=== PATIENT | female | born 1970 | race African-American/Black ===

== ENCOUNTER 2017-08-18 08:20 | Emergency (ER) | END 2017-08-18 12:57 | disposition home or self-care (01) ==

== ENCOUNTER 2018-02-05 21:27 | Emergency (ER) | END 2018-02-06 01:11 | disposition home or self-care (01) ==

== ENCOUNTER 2018-10-18 13:24 | Emergency (ER) | payer BC ==
[~2018-10-18] VITALS: Ht 157.5 cm; Wt 68.2 kg
[~2018-10-18 13:24] MED LIST: CETI10CA PO; DIVA-48 PO; LORA-441 PO; MECL-77 PO; MECL12.574 PO; PHEN100O2 PO
[2018-10-18 13:32] VITALS: Ht 157.5 cm; Wt 68.2 kg
[2018-10-18] MEDS ORDERED: HYDROCODONE/APAP (10/325) TAB PO ONE (14:00)
[2018-10-18] MEDS ORDERED: PHEN100C PO (14:56)
[2018-10-18] MEDS ORDERED: LEVE750T70 PO (14:56)
[2018-10-18] MEDS ORDERED: CITA20TA11 PO (14:57)
[2018-10-18] MEDS ORDERED: CITA10TA10 PO (14:57)
--- NOTE | 2018-10-18 15:20 | ERD ---
ER Documentation Chief Complaint Chief Complaint [place] [facility] [employer] S/P SEIZURE; HX SEIZURE HPI This is a 48-year-old female with a long-standing seizure disorder who takes D ilantin 300 mg at night with Keppra 1000 mg twice daily. The patient was aligned to get some food at a local store when she had a witnessed general tonic-clonic seizure for 2 minutes. Patient does not recall anything except waking up in the ambulance. She has not had a seizure in quite a while. She is not sure when her last one was. Currently she has a mild headache. Denies any neck pain shoulder pain no recent illness injury she is taking her medications as prescribed she states ROS All systems reviewed and are negative except as per history of present illness. Medications Home Meds Reported Medications Citalopram Hydrobromide* (Celexa*) 20 Mg Tablet, 20 MG PO QPM, #30 TAB 10/18/18 Citalopram Hydrobromide* (Celexa*) 10 Mg Tablet, 10 MG PO QAM, #30 TAB 10/18/18 Phenytoin* Sodium Extended (Dilantin*) 100 Mg Capsule, 400 MG PO HS, CAP 10/18/18 Levetiracetam* (Keppra*) 750 Mg Tablet, 1500 MG PO BID, TAB 10/18/18 Discontinued Reported Medications Phenytoin* (Dilantin* Susp) 100 Mg/4 Ml Oral.susp, 200 MG PO BID, POSYG 10/17/13 Divalproex Sodium* (Depakote*) 500 Mg Tablet.dr, 500 MG PO BID, TAB 10/17/13 Meclizine Hcl* (Meclizine Hcl*) 25 Mg Tablet, 25 MG PO Q6 10/17/13 Discontinued Scripts Cetirizine Hcl* (Zyrtec*) 10 Mg Capsule, 10 MG PO DAILY, #30 TAB.CHEW Prov:CRISTINA SCHWARTZ [employer] FUNCTIONAL ANALYST 02/06/18 Meclizine Hcl* (Antivert*) 12.5 Mg Tab, 25 MG PO Q6H PRN for DIZZINESS, #20 TAB Prov:CRISTINA SCHWARTZ [employer]CTIONAL ANALYST 02/06/18 Lorazepam* (Ativan*) 0.5 Mg Tablet, 0.5 MG PO Q8H PRN for ANXIETY, #6 TAB Prov:DIERDRE BANGURA MD 08/18/17 Allergies Allergies: Coded Allergies: No Known Drug Allergy (Verified Allergy, Unknown, 10/18/18) PMhx/Soc History of Surgery: Yes (BUNION, TUBAL LIGATION ) Anesthesia Reaction: No Hx Neurological Disorder: No Hx Respiratory Disorders: No Hx Cardiac Disorders: No Hx Psychiatric Problems: Yes (DEPRESSION , ANXIETY ) Hx Miscellaneous Medical Probl: Yes (SEIZURES) Hx Alcohol Use: Yes (occassional) Hx Substance Use: Yes (Marijuana) Hx Tobacco Use: Yes Smoking Status: Current every day smoker FmHx Family History: No coronary disease Physical Exam Vitals Vital Signs Date Temp Pulse Resp B/P (MAP) Pulse Ox O2 O2 Flow FiO2 Time Delivery Rate 10/18/18 98.7 88 15 119/80 100 13:32 (93) Physical Exam Const: Well-developed, well-nourished Head: Atraumatic, normocephalic Eyes: Normal Conjunctiva, PERRLA, EOMI, normal sclera, no nystagmus ENT: Normal External Ears, Nose and Mouth, moist mucus membranes. Neck: Full range of motion. No meningismus, no lymphadenopathy. Resp: Clear to auscultation bilaterally, no wheezing, rhonchi, rales Cardio: Regular rate and rhythm, no murmurs, S1 S2 present Abd: Soft, non tender x 4, non distended. Normal bowel sounds, no guarding or rebound, no pulsitile abdominal masses or bruits Skin: No petechiae or rashes, no ecchymosis , no maculopapular rash Back: No midline or flank tenderness Ext: No cyanosis, or edema, FROM x 4, normal inspection, neurovascularly intact x 4 Neur: Awake and alert, STR 5/5 x 4, sensation intact x 4, no focal findings, cerebellum intact Psych: Normal Mood and Affect Results 24 hrs Laboratory Tests Test 10/18/18 13:50 Phenytoin (Dilantin) Level 5.7 ug/ml Current Medications Medications Dose Sig/Raquel Start Time Status Last (Trade) Ordered Route PRN Stop Time Admin Dose Reason Admin 1 tab ONCE ONCE 10/18/18 DC 10/18/18 Acetaminophen PO 14:00 10/18/18 13:54 / 14:01 Hydrocodone Bitart ([place] ()) Procedures/MDM Patient: OLIVIA,KITA : 1970 Age: 48 Sex: F MR #: [id number] DOS: 10/18/18 1349 Ordering MD: JOSLYN GILMORE DO Location: E/R Room/Bed: PROCEDURE: CT Brain without contrast. CLINICAL INDICATION: Headache, syncope, altered mental status TECHNIQUE: A CT of the brain was performed on a multi-slice CT scanner utilizing axial imaging from the skull base through the vertex without IV contrast. Multiplanar reformatted images were made. Images were reviewed on a PACS workstation. The CTDIvol is 39.6 mGy and the DLP is 634.2 mGycm. One or more of the following dose reduction techniques were used: Automated exposure control. Adjustment of the mA and/or kV according to patient's size. Use of iterative reconstruction technique. DICOM images are available. COMPARISON: 02/06/2018 FINDINGS: The sulcal gyral pattern is unremarkable without evidence of effacement. The khan-white matter differentiation is intact. No masses, edema or shift is identified. There are no intraparenchymal or extraaxial fluid collections. The visualized paranasal sinuses and mastoid air cells are well-aerated. The skull base and calvarium are intact. IMPRESSION: No acute intracranial abnormalities are identified. RPTAT:AAJJ Physician Vaughn Date Time Electronically viewed and signed by Mata Banks Physician on 10/18/2018 14:50 MC/ CC: JOSLYN GILMORE DO [phone] The patient's Dilantin level is low at 5.7. She does not want to stay and get intravenous replacement. I told her the home dosing schedule to boost her Dilantin level higher. We did report her seizure activity to the [facility] Departure Diagnosis: Primary Impression: Seizure disorder Condition: Stable Patient Instructions: Seizure, Recurrent [Adult] Referrals: DOCTOR,NOT ON STAFF (PCP) JOSLYN GILMORE DO October 18, 2018 15:20
[2018-10-18 15:30] VITALS: BP 122/79; PULSE 78; RESP 19
== END 2018-10-18 15:37 | disposition home or self-care (01) ==
LOC: E/R 13:24
DX: G40.909 Epilepsy, unspecified, not intractable, without status epilepticus (principal); F17.210 Nicotine dependence, cigarettes, uncomplicated; R40.2142 Coma scale, eyes open, spontaneous, at arrival to emergency department; R40.2362 Coma scale, best motor response, obeys commands, at arrival to emergency department; R40.2252 Coma scale, best verbal response, oriented, at arrival to emergency department
CPT/HCPCS: 70450; 80185; 99284; Z7610